=== PATIENT | male | born 1980 | race Caucasian/White ===

== ENCOUNTER 2025-01-06 07:08 | Emergency (ER) | payer OTHER, SELFPAY ==
[2025-01-06 07:12] VITALS: BP 139/84; PULSE 64; RESP 18; TEMP 36.6; O2SAT 100
[2025-01-06 07:15] VITALS: BP 139/84; PULSE 64; RESP 18; TEMP 36.6; O2SAT 100
--- NOTE | 2025-01-06 07:15 | DI.CT_ITS ---
Exam(s) CT ABDOMEN PELVIS W EXAM: CT ABDOMEN PELVIS W CLINICAL HISTORY: RUQ and flank pain. TECHNIQUE: Imaging Protocol: Axial computed tomography images with coronal and sagittal reformatted images were created and reviewed CONTRAST MATERIAL: Intravenous: Omnipaque 350 Contrast volume:100 ml Oral: no COMPARISON: No exams were available for comparison FINDINGS: ABDOMEN and PELVIS: Lung Bases: No acute findings. Liver: Enlarged. Mild hepatic steatosis. No suspicious mass. Gallbladder and biliary tract: 2 stones are visible. No wall thickening or pericholecystic fluid. No biliary dilation. Pancreas: Normal density. No abnormal calcifications or inflammatory process. No evidence of mass. Spleen: Normal. Kidneys: Normal size, contour and axis. No radiodense stones. No obstructive uropathy. No suspicious masses seen. Adrenal glands: No masses seen. Vasculature: Abdominal aorta non-dilated. Soft tissues: Fat containing right inguinal hernia. Bladder: No gross wall thickening. No calculi.No focal mass. Bowel: No obstruction. Diverticulosis. Appendix normal. Peritoneal cavity: No ascites. No focal collection. No mesenteric inflammatory response. No free air. Bones: Unremarkable for age. Reproductive organs: Unremarkable. Lymph nodes: No pathologically enlarged lymph nodes. IMPRESSION:: Cholelithiasis. No evidence of acute cholecystitis. Diverticulosis. No evidence of diverticulitis. RADIATION DOSE DELIVERED: 625.72mGy.cm Total DLP DATA REPOSITORY: All CT scans at this facility are submitted to the National Radiology Data Registry (NRDR) Dose Index Registry (DIR) with the [employer] (A[employer]). RADIATION OPTIMIZATION: All CT scans at this facility use at least one of these dose optimization techniques: automated exposure control; mA and/or kV adjustment per patient size (includes targeted exams where dose is matched to clinical indication); or iterative reconstruction.
--- NOTE | 2025-01-06 07:25 | W.ED.GENAD ---
Discharge Plan Disposition Patient Disposition: Home Condition: Stable Discharge Details Clinical Impression: Cholelithiasis, Biliary colic Primary Care Provider: None,None ED Provider: Marcella Gomez Home Meds and New Rx's Prescriptions: No Action No Known Home Meds Discharge Instructions Instructions: Gallstones (DC) Additional Instructions: You were seen in the emergency department today for evaluation of right upper quadrant abdominal pain and were found to have gallstones. Right now there is no sign of infection in your gallbladder but we did place a referral to general surgery to discuss surgical removal of your gallbladder part to prevent further gallbladder attacks. Please maintain good hydration, and you should follow a low-fat diet to avoid worsening your gallbladder pain. Please use therapeutic dosing of Tylenol (acetaminophen) & Advil (ibuprofen) in an alternating fashion as follows: Take 1000mg of Tylenol every 6 hours without missing doses- that is 4 times per day. Detention in between the Tylenol doses, take 600mg of Advil also on a 6 hour schedule, that is also 4 times per day. With this strategy, you will be taking something for fever/pain as often as every 3 hours. The daily maximum dosing of Tylenol is 4000mg, and the daily maximum dosing of Advil is 2400mg. Please note that some common cold medications & prescription pain medications may contain acetaminophen and you need to read OTC drug labels and factor that in to maximum daily doses. Please follow-up with your primary care provider in the next few days to discuss this visit and any symptoms that change, worsen, or persist. Thank you for allowing us to be part of your care. Referrals: Franc Cuevas MD [ [facility] STAFF PHYSICIAN, Surgery] - 1 week Discharge Data Discharge Date/Time-TO BE ENTERED AT DEPARTURE: 01/06/25 09:40 HPI General Mode of arrival: ambulatory. Date/Time Provider Initiated Documentation: 01/06/25 07:09. Limitations to Documentation: no limitations. Information obtained by: patient, family and old records reviewed. HPI Narrative: This is a 44-year-old male patient without significant past medical history who is presenting for evaluation of right flank and right upper quadrant abdominal pain. The patient was in his normal state of health until this morning, when he woke up with severe pain in his back. The pain seems to have migrated into his right upper quadrant. It is not associated with any nausea or vomiting and he was able to eat an orange and drink some water this morning without difficulty. He states that he has had pain like this in the past intermittently over the last several months. He reports no fevers or chills, no dysuria or hematuria, no diarrhea or constipation, last stool was yesterday. No history of abdominal surgeries. Related Data Home Medications ?Medication ?Instructions ?Recorded ?Confirmed Unknown [No Known Home Meds] 01/06/25 01/06/25 Allergies Allergy/AdvReac Type Severity Reaction Status Date / Time No Known Allergies Allergy Unverified 01/06/25 07:15 General Stated Complaint: Abd Prob JULIÁN: 3 Exam Narrative Exam Narrative: Gen: Awake and alert, appears to be having difficulty getting comfortable on the bed HEENT: Non-icteric sclera Neck: Supple Lungs: No apparent respiratory distress, normal respiratory effort. CV: Appears well perfused, heart with regular rate and rhythm, strong distal pulses Abdomen: Non-distended, soft, tender to palpation in the right upper quadrant without rigidity, rebound, or guarding MSK: Moves 4 extremities without apparent limitation in ROM. No CVA tenderness or overlying skin changes Skin: Visualized skin without rashes, cyanosis. Neuro: Normal Gait, no obvious focal deficits or facial asymmetry. Speaks in full, clear sentences. Psych: Appropriate for situation. Course Vital Signs Vital signs: Vital Signs Temperature 36.6 C 01/06/25 07:12 Pulse 64 01/06/25 07:12 Respiratory Rate 18 01/06/25 07:12 Blood Pressure 139/84 01/06/25 07:12 Pulse Oximetry 100 01/06/25 07:12 Temperature 36.6 C 01/06/25 07:15 Temperature Source Tympanic 01/06/25 07:15 Pulse 64 01/06/25 07:15 Respiratory Rate 18 01/06/25 07:15 Blood Pressure 139/84 01/06/25 07:15 Pulse Oximetry 100 01/06/25 07:15 Medical Decision Making This is a 44-year-old male patient presenting for evaluation of right upper quadrant abdominal pain and right flank pain. My differential includes, but is not limited to, gastritis/PUD, gastroenteritis, pancreatitis, cholecystitis and gallbladder pathology, hepatitis, appendicitis, diverticulitis, small bowel obstruction. Considered urinary pathology including UTI, nephrolithiasis. Considered mesenteric ischemia, aortic pathology, though this is less concerning based on the patient's history and physical exam. We will obtain laboratory studies to include CBC, CMP, magnesium, troponin, lipase, and urinalysis. Given the location of the pain, we will obtain a CT of the abdomen pelvis with contrast. I will provide the patient with a dose of Toradol for initial pain management. -I independently interpreted the laboratory studies, which show no significant leukocytosis, anemia, or thrombocytopenia. The chemistry panel is without evidence of electrolyte abnormality, kidney dysfunction, or liver injury. Lipase is low. Troponin is negative and without interval increase on 1 hour delta recheck. The patient has trace ketones and small leukocyte esterase, with no hematuria, pyuria, or other concerning infectious findings on his microscopy. I reviewed the patient's CT, which is positive for gallstones with no radiographic evidence for cholecystitis. He also has diverticulosis without diverticulitis, no evidence of renal stones. I performed a bedside ultrasound which redemonstrated the gallstones, but I note no thickening of the gallbladder wall, Corrigan sign, or pericholecystic fluid. In this patient with normal LFTs, a normal white count, and she was able to tolerate oral intake without nausea or vomiting, I feel that biliary colic is the most likely diagnosis. I recommended a low-fat diet, and provided him with a referral to general surgery to discuss cholecystectomy. At this time, the patient has had a full medical evaluation and is safe for discharge to home. They are hemodynamically stable, ambulatory, and tolerating PO. They are understanding of the follow-up plan and return precautions. They left our facility without incident. Marcella Gomez MD [facility], [facility] All Active Problems (Updated 01/06/25 @ 09:20 by Marcella Gomez MD) Biliary colic (Acute) Cholelithiasis (Acute) Social History Smoking/Tobacco Use Status: Never Smoking risk assessment performed?: Yes Alcohol Intake: never Drug use: Never Substance use type: does not use Do you feel safe at home: Yes Do you feel safe in your relationship?: Yes POCUS Exam (ED) Limited Gallbladder Exam DATE OF EXAM: 01/06/25 TIME OF EXAM: 09:06 PROVIDER THAT PERFORMED THE STUDY: Marcella Gomez REASON FOR VISIT: Biliary Colic and RUQ pain VISUALIZED STRUCTURES: Gallbladder, Gallbladder wall and Liver PERTINENT FINDINGS/IMPRESSION: Gallstones; No Cholecystitis, No Pericholecystic fluid and No thickening of the gallbladder wall Exam complete
[2025-01-06 07:36] LABS: Abs Immature Grans 0.02 10^3/uL (0.0-0.06); HCT 44.0 % (40.0-50.0); HGB 14.7 g/dL (13.5-17.5); Immature Grans % 0.3 %; MCH 30.2 pg (27.0-33.0); MCHC 33.4 % (32.0-36.0); MCV 90 fL (80-95); MPV 9.6 fL (8.0-11.0); Platelet Count 206 10^3/uL (130-400); RBC 4.87 10^6/uL (4.36-5.78); RDW 12.4 % (11.8-14.1); RDW-SD 41.1 fL; WBC 7.51 10^3/uL (4.4-10.8)
[2025-01-06] MEDS: Ketorolac 15 MG/ML VIAL IVP (07:38)
[2025-01-06 07:45] LABS: Glucose Negative (Negative)
[2025-01-06 07:53] LABS: ALT 20 U/L (16-63); AST 17 U/L (15-37); Albumin 3.8 g/dL (3.4-5.0); Alkaline Phosphatase 92 U/L (46-116); Anion Gap 4.9 mmol/L (3-11); BUN 19 mg/dL (7-18); Bilirubin, Total 0.5 mg/dL (0.2-1.0); CO2 33.1 mmol/L (21.0-32.0); Calcium 9.2 mg/dL (8.5-10.1); Chloride 103 mmol/L (98-107); Estimated GFR 85.95 (mL/min/1.73m2); Glucose 124 mg/dL (74-106); Lipase 29 U/L (<78); Magnesium 2.2 mg/dL (1.8-2.4); Potassium 4.3 mmol/L (3.5-5.1); Sodium 141 mmol/L (136-145); Total Protein 7.1 g/dL (6.4-8.2); Troponin I 9 ng/L (<or=76)
[2025-01-06 07:53] LABS: RBC Negative HPF (0-2)
[2025-01-06 07:54] LABS: C & S Indicated? No
[2025-01-06 08:34] VITALS: BP 114/71; PULSE 67; RESP 17; O2SAT 97
[2025-01-06] MEDS: Omnipaque 350 MG/ML 100 ML BTL IJ (08:42)
[2025-01-06] MEDS: Normal Saline - Diluent 50 ML VIAL IJ (08:43)
[2025-01-06 09:01] LABS: Troponin I 7 ng/L (<or=76)
[2025-01-06 09:38] VITALS: BP 117/73; PULSE 64; RESP 18; O2SAT 99
== END 2025-01-06 09:40 | disposition home or self-care (01) ==
PROVIDERS: Emergency Provider Emergency Medicine
DX: K80.50 Calculus of bile duct without cholangitis or cholecystitis without obstruction (principal); K80.20 Calculus of gallbladder without cholecystitis without obstruction; R10.11 Right upper quadrant pain
CPT/HCPCS: 99284; 99285; 96374; 36415; 76705; 80053; 83690; 74177; 81003; 81015; 83735; 84484; 85025; J1885; J3490

== ENCOUNTER 2025-01-20 09:54 | Day surgery (SDC) | payer OTHER, SELFPAY ==
[2025-01-20] VITALS (24 sets, daily range): BP systolic 105–132; BP diastolic 66–80; PULSE 44–76; RESP 13–22; TEMP 36.2–36.7; O2SAT 98–100; BMI 30.7
[2025-01-20] MEDS: Lactated Ringers 1,000 ML 80 ML IV (10:31)
--- NOTE | 2025-01-20 12:03 | W.ANESPRE ---
General Info Date of Service Date Performed: 01/20/25 Height: 5 ft 11 in Weight: 99.9 kg Body Mass Index (BMI): 30.7 Surgical Procedure: Operation Date: 01/20/25 11:55 Proposed Procedure Side Surgeon p Cholecystectomy Laparoscopic Sima Burroughs MD Meds Allergies and Home Medications Allergies Allergy/AdvReac Type Severity Reaction Status Date / Time No Known Allergies Allergy Unverified 01/20/25 10:18 Home Medication ?Medication ?Instructions ?Recorded Unknown [No Known Home Meds] 01/06/25 Current Visit Medications: Current Medications Generic Name Dose Route Start Last Admin Trade Name Freq PRN Reason Stop Dose Admin Acetaminophen 1,000 mg 01/20/25 06:00 Acetaminophen 500 Mg Tab PO 02/16/25 23:59 PREOP ALEJANDRO Celecoxib 200 mg 01/20/25 06:00 Celecoxib 200 Mg Cap PO 02/16/25 23:59 PREOP ALEJANDRO Gabapentin 600 mg 01/20/25 06:00 Gabapentin 300 Mg Cap PO 02/16/25 23:59 PREOP ALEJANDRO Ringer's Solution 1,000 mls @ 80 mls/hr 01/20/25 06:00 01/20/25 10:31 IV 02/16/25 23:59 80 mls/hr INFUSION ALEJANDRO Administration Cefazolin Sodium/Dextrose 2 gm in 50 mls @ 100 mls/hr 01/20/25 06:00 Ancef Duplex IVPB 02/16/25 23:59 PREOP ALEJANDRO IV Miscellaneous Supplies 1 each 01/20/25 06:00 Iv Access IV 02/16/25 23:59 DIRECTED ALEJANDRO Indocyanine Green 5 mg 01/20/25 06:00 Indocyanine Green 25 Mg Vial IVP 02/19/25 05:59 PREOP ALEJANDRO Sodium Chloride 0 ml 01/20/25 06:00 Normal Saline Flush 10 Ml Syr IV 02/16/25 23:59 PRN PRN Sodium Chloride 0 ml 01/20/25 06:00 Normal Saline 10 Ml Vial IJ 02/16/25 23:59 DIRECTED PRN Sterile Water 0 ml 01/20/25 06:00 Water,Injection,Sterile 10 Ml Vial IJ 02/16/25 23:59 DIRECTED PRN PFSH Active Problems Active Problems: Problem Status Onset Code Biliary colic Acute K80.50 Cholelithiasis Acute K80.20 Tobacco Smoking/Tobacco Use Status: Current every day Tobacco Type: e-cigarettes Alcohol Alcohol Intake: current Alcohol intake frequency: a few times a month Substance Use Substance use: Daily Substance use type: marijuana Details: smokes marijuana- Last used 01/19/25 Vital Signs and Lab Results Vital Signs Most Recent Vital Signs in EMR: Most Recent Vital Signs Temp Pulse Resp BP Pulse Ox 36.4 C L 68 18 105/69 100 01/20/25 10:19 01/20/25 10:19 01/20/25 10:19 01/20/25 10:19 01/20/25 10:19 Lab Results Complete Blood Count: WBC, (4.4-10.8) 7.51 10^3/uL 01/06/25, 07: RBC, (4.36-5.78) 4.87 10^6/uL 01/06/25, 07: Hgb, (13.5-17.5) 14.7 g/dL 01/06/25, : Hct, (40.0-50.0) 44.0 % 01/06/25, : Plt Count, (130-400) 206 10^3/uL 01/06/25, 07:29 Complete Metabolic Panel: Sodium, (136-145) 141 mmol/L 01/06/25, 07: Potassium, (3.5-5.1) 4.3 mmol/L 01/06/25, : Chloride, (98-107) 103 mmol/L 01/06/25, : Carbon Dioxide, (21.0-32.0) 33.1 mmol/L H 01/06/25, : BUN, (7-18) 19 mg/dL H 01/06/25, 07: Creatinine, (0.70-1.30) 1.1 mg/dL 01/06/25, : Est GFR (CKD-EPI 2020), (mL/min/1.73m2) 85.95 01/06/25, : Magnesium, (1.8-2.4) 2.2 mg/dL 01/06/25, : Calcium, (8.5-10.1) 9.2 mg/dL 01/06/25, : Albumin, (3.4-5.0) 3.8 g/dL 01/06/25, : Glucose, (74-106) 124 mg/dL H 01/06/25, 07:29 Liver Function Panel: ALT, (16-63) 20 U/L 01/06/25, : AST, (15-37) 17 U/L 01/06/25, 07: Cardiac Panel: Troponin I, (<or=76) 7 ng/L 01/06/25 Pancreas Panel: Lipase, (<78) 29 U/L 01/06/25, : Anesthesia Assessment and Plan Anesthesia History Personal History: No History of General Anesthesia Family History: No Family History of Anesthesia Complications Exercise Tolerance Exercise Tolerance: Metabolic Equivalents>4 Pertinent Negatives Pertinent Negatives: No Symptoms of GERD Cardiac & Pulmonary Exam Cardiac Exam: Normal S1/S2 Heart Sounds Pulmonary Exam: Clear Bilateral Breath Sounds Implantable Cardiac Device Does patient have a Pacemaker or an ICD?: No Airway Exam Known Difficult Airway: No Mallampati Class: 2 Mouth Opening: Normal (> 3cm) Thyromental Distance: Greater than 3 cm Neck Range of Motion: Full ROM Neck Circumference: Normal Teeth Condition: Normal Dentition Tooth Numbering:  1. Reports broken 2. Reports broken ASA Classification ASA Score: ASA 2 Emergency Case?: No NPO Status NPO Status: NPO Clears >2 hours, Solids >8 hours Anesthesia Plan Resuscitation Status: Full Code Anesthesia Technique: General Anesthesia Airway Planned: Endotracheal Tube Monitors Used: Standard Monitors
--- NOTE | 2025-01-20 12:25 | PDOC.DSDIS_ITS ---
Date of service: 01/20/25 Discharge Plan Disposition Patient Disposition: Home Condition: Stable Discharge Details Reason For Visit: cholecystectomy Attending Provider: Sima Burroughs Primary Care Provider: None,None Recommendations for Follow Up Recommended tests to be ordered by follow up provider: None Home Meds and New Rx's Prescriptions: New hydrocodone-acetaminophen 5-325 mg tablet 1 tab PO Q6H PRN (Reason: pain) Qty: 10 0RF Discharge Instructions Additional Instructions: Shower in 48 hours. Wash gently over steri-strips with soapy hands, rinse, pat dry. Don't peel strips or submerge them under water. The longer they stay on, the nicer the scars will heal. Ok to walk, climb stairs, and resume normal activities of daily living. Do not lift/push/pull more than 20lb for 4 weeks. Diet as tolerated, allow your body to naturally make adjustments in the bile sean w after surgery. Eat your normal diet. Loose stools may occur. We will discuss them at follow up if still present in 2 weeks. Call or return for fever or incisional problems. Activity:: see typed instructions Shower/Bathe:: 48 hours Diet:: As Tolerated Discharge Orders Discharge Orders: Discharge Order (Routine); Ordered 01/20/25 Ordered By: Sima Burroughs DS: Diagnosis Discharge Diagnosis (1) Cholelithiasis: Status: Acute
[2025-01-20] MEDS: ceFAZolin 2 GM/50 ML BAG IVPB (13:06)
[2025-01-20] MEDS: Bupivacaine 0.5% Pres-Free W/EPI 30 ML VIAL (13:31)
--- NOTE | 2025-01-20 14:20 | GB_PTH ---
PATIENT: Neo Luevano LOC: [facility] U#:[id number] AGE/SX: 44/M ROOM: RE01/20/[address]: Sima Burroughs MD : 1980 BED: DIS: 01/20/2025 SPEC #: [id number] RECD: 01/20/25 15:41 STATUS: MAXIMILIAN REQ #: [id number] KELLEY: 01/20/25 14:[address]: Sima Burroughs DEPT: Surgical Specimen RECD BY: Shirley Fitzpatrick ENTERED: 01/20/25 15:41 SP TYPE: GB OTHR DR: None Tissues: 1 - GALLBLADDER Procedures: GROSS AND MICRO LEVEL 3 Comments: [id number]
--- NOTE | 2025-01-20 14:41 | W.PM.OP ---
Operative Note Operative Note Refer to Anesthesia Record Procedure Description: Preoperative diagnosis: Symptomatic cholelithiasis Postoperative diagnosis: Symptomatic cholelithiasis Procedure: Laparoscopic cholecystectomy Surgeon: Sima Burroughs MD Legislative Correspondent: ARNODLO Chow Anesthesia: GETA + local EBL 30mL Specimen: Gallbladder Complications: None Procedure Description: This is a 44-year-old male who presented with RUQ pain and gallstones. Cholecystectomy was indicated. We discussed the procedure risks, benefits, alternatives, and expectations. All of the patient's questions were answered to their satisfaction. Informed consent was obtained and the patient was transferred to the operating room. He was placed supine on the operating table. SCDs were placed and all pressure points were padded appropriately. General anesthesia was induced. The abdomen was clipped prepped and draped in the usual sterile fashion. Timeout was performed. Local anesthetic was infiltrated underneath the umbilicus. An incision was made in the skin and the incision carried down to the umbilical stalk using cautery. The umbilical stalk was elevated using a Polina clamp and the fascia cleared of its fatty tissues. An incision was made in the fascia, and a Melba clamp was used to enter the peritoneum. A finger was used to ensure no structures were adhered to the anterior abdominal wall. A Douglass trocar was introduced and the abdomen was insufflated to 15 mmHg. Initial laparoscopy confirmed no injury to the intra-abdominal structures. 3 additional 5 mm ports were placed in the upper abdomen under direct visualization. Local anesthetic was infiltrated at each port site. The patient's head was elevated and she was rotated toward the left. The gallbladder was elevated. The gallbladder dome was grasped and retracted cephalad. The infundibulum was grasped and retracted laterally and a dissection in Calot's triangle was pursued with a [place] dissector and a suction tool. 2 tubular structures were dissected free and skeletonized. A critical view was obtained and the gallbladder cystic duct and cystic artery were identified and confirmed. The cystic duct and cystic artery were clipped and transected with EndoShears. The gallbladder was then removed from the liver bed with cautery. It was placed into an Endo Catch bag and removed from the abdomen through the umbilicus. The liver bed was examined and hemostasis assured. The patient taken out of reverse Trendelenburg position. The 5 mm ports were removed and the abdomen was desufflated. The umbilical trocar was removed. The umbilical fascia was closed with an 0 Vicryl suture in a [id number] stitch. The remainder of the local anesthetic was infiltrated into the umbilical fascia. The incisions were all closed with interrupted 4-0 Monocryl sutures in subcuticular fashion. The incisions were all washed and dried and Steri-Strips applied. The patient tolerated the procedure well. He extubated in the operating room and transferred to the recovery room in stable condition. There were no complications Date of Procedure: 01/20/25
--- NOTE | 2025-01-20 15:10 | W.ANESPOSTOP ---
Postoperative Evaluation Date, Time and Location Date Performed: 01/20/25 Time Performed: 15:11 Patient Location: PACU Vital Signs Most Recent Imported Vital Signs: Most Recent Vital Signs Temp Pulse Resp BP Pulse Ox 36.2 C L 68 18 105/69 100 01/20/25 14:56 01/20/25 10:19 01/20/25 10:19 01/20/25 10:19 01/20/25 10:19 Pain Score Most Recent Pain Score: Most Recent Pain Score Pain Level 0 01/20/25 10:19 Assessment Mental Status: Arousable with meaningful communication Airway and Respiratory Function: Patent airway with normal (patient baseline) respiratory exam Cardiovascular Function: Hemodynamically Stable Hydration Status: Adequately Hydrated Nausea & Vomiting: No Nausea or Vomiting Pain: Pain is tolerable per patient Peripheral Nerve Block: Patient did not receive a nerve block
[2025-01-20] MEDS: HYDROmorphone 2 MG/ML SYR IVP ×2 (15:11→15:21)
== END 2025-01-20 16:25 | disposition home or self-care (01) ==
PROVIDERS: Visit Provider Surgery
PROC: 0FT44ZZ Resection of Gallbladder, Percutaneous Endoscopic Approach (ICD-10-PCS; CPT 47562; principal; 2025-01-20 11:45)
DX: K80.12 Calculus of gallbladder with acute and chronic cholecystitis without obstruction (principal)
CPT/HCPCS: 47562; 88304; J0131; J0690; J1100; J1171; J1885; J2003; J2371; J2405; J2704; J3010